=== PATIENT | female | born 1995 | race Caucasian/White ===

== ENCOUNTER 2021-11-29 10:44 | Outpatient (CLI) | payer BC, SELFPAY ==
[2021-12-02 04:39] LABS: Insulin Level Total 8.8 uIU/mL (<=19.6)
== END 2021-11-29 10:45 | disposition home or self-care (01) ==
PROVIDERS: PCP Physician Assistant; Visit Provider Obstetrics & Gynecology
DX: N97.0 Female infertility associated with anovulation (principal)
CPT/HCPCS: 36415; 83525

== ENCOUNTER 2022-04-02 07:01 | Outpatient (CLI) | payer BC, SELFPAY ==
--- NOTE | ~2022-04-02 | XR_ITS ---
EXAMINATION: XR hysterosalpingogram DATE: 04/02/2022 08:36 INDICATION: Female infertility associated with anovulation TECHNIQUE: Real-time fluoroscopy was utilized during contrast infusion into the endometrial canal of the uterus by the primary physician. A single fluoroscopic image was recorded. Fluoroscopy exposure t renu was 0.2 minutes. Total DAP was 1.817 Gycm^2 FINDINGS: The uterine cavity demonstrates normal morphology. The fallopian tubes are normal in caliber and pat ent bilaterally. There is normal spillage of contrast into the peritoneum on both sides. IMPRESSION: 1. Normal hysterosalpingogram. Reviewed, dictated and finalized at location A.
[2022-04-02 08:08] LABS: Beta HCG Quantitative < 2.39 mIU/ML
--- NOTE | 2022-05-01 07:39 | W.PM.PROC2 ---
Procedure Note - Detailed Date of Procedure 04/02/22 Pre-op Diagnosis Femal infertility associated with anovulation Post-op Diagnosis Same Procedure Performed Hysterosalpingogram Surgeon Ronan Fallno MD Anesthesia None Indications Infertility Findings Bilateral fill and spill Description of Procedure After informed consent obtained. She was positioned. Speculum inserted. Cervix cleaned with betadine. Single tooth tenaculum placed on cervix. The cannula was inserted into cervical os and tubing was advanced. The tubing baloon was inflated. The speculum removed. Once the appropriate films obtained, which there was noted to be bilateral fill and spill, the speculum and tenaculum removed. Hemostasis noted. She tolerated procedure well. Estimated Blood Loss 2 Drains No Packing No Pathology None sent Complications No immediate complications Condition Stable Disposition Other (home) [facility] Billing Surgery - Charge Forward: Surgery Billing
== END 2022-04-02 07:02 | disposition home or self-care (01) ==
PROVIDERS: PCP Physician Assistant; Visit Provider Obstetrics & Gynecology
DX: N97.0 Female infertility associated with anovulation (principal)
CPT/HCPCS: 36415; 58340; 74740; 84702; Q9966

== ENCOUNTER 2022-05-21 09:05 | Outpatient (CLI) | payer BC, SELFPAY ==
[2022-05-25 06:32] LABS: Progesterone 0.4 ng/mL (***)
== END 2022-05-21 09:06 | disposition home or self-care (01) ==
LOC: ANHLAB 09:07
PROVIDERS: PCP Physician Assistant; Visit Provider Obstetrics & Gynecology
DX: N97.0 Female infertility associated with anovulation (principal)
CPT/HCPCS: 36415; 84144

== ENCOUNTER 2022-06-18 15:53 | Outpatient (CLI) | payer BC, SELFPAY ==
--- NOTE | ~2022-06-18 | US_ITS ---
Pelvic ultrasound. Clinical History: First trimester , evaluate for viability/dates Technique: Realtime transabdominal and transvaginal scanning of the pelvis was performed. Color flow Doppler and Doppler spectral analysis were performed. Findings: The uterus is anteverted. The endometrial stripe has a thickness of 17 mm. There is a poss ible very early intrauterine gestational sac, with estimated gestational age of 5 weeks 2 days based on average sac diameter of 5 mm. No definite visible pole or yolk sac, commensurate with the ea rly gestational age. The right ovary measures 2.5 x 2.4 x 1.7 cm. No significant right ovarian or adnexal mass is seen. The left ovary measures 3.0 x 3.5 x 2.3 cm. No significant left ovarian or adnexal mass is seen. Vascular flow present in both ovaries on Doppler spectral analysis. There is no evidence of free fluid in the cul de sac. Impression: Probable early intrauterine gestational sac with estimated gestational age of 5 weeks 2 days based on average sac diameter. No visible pole or yolk sac, which would be commensurate with the early gestational age. Consider serial beta hCG trending, and/or follow-up exam as indicated to assess for development of pole/cardiac activity. Reviewed, dictated and finalized at location . 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 No visible pole or yolk sac, which would be commensurate with the early gestational age. Consider serial be ta hCG trending, and/or follow-up exam as indicated to assess for development o f pole/cardiac activity.
[2022-06-22 06:23] LABS: Progesterone 13.5 ng/mL (***)
== END 2022-06-18 15:54 | disposition home or self-care (01) ==
LOC: ANHIMG 15:55
PROVIDERS: PCP Physician Assistant; Visit Provider Obstetrics & Gynecology
DX: O36.80X0 Pregnancy with inconclusive fetal viability, not applicable or unspecified (principal); O09.299 Supervision of pregnancy with other poor reproductive or obstetric history, unspecified trimester; Z3A.00 Weeks of gestation of pregnancy not specified
CPT/HCPCS: 36415; 76801; 76817; 84144; 84702

== ENCOUNTER 2022-06-20 14:01 | Outpatient (CLI) | payer BC, SELFPAY ==
[2022-06-25 16:32] LABS: Progesterone 10.5 ng/mL (***)
== END 2022-06-20 14:02 | disposition home or self-care (01) ==
LOC: ANHLAB 14:04
PROVIDERS: PCP Physician Assistant; Visit Provider Obstetrics & Gynecology
DX: O09.299 Supervision of pregnancy with other poor reproductive or obstetric history, unspecified trimester (principal)
CPT/HCPCS: 36415; 84144; 84702

== ENCOUNTER 2022-07-05 12:23 | Outpatient (CLI) | payer BC, SELFPAY ==
--- NOTE | ~2022-07-05 | US_ITS ---
Pelvic ultrasound. Clinical History: First trimester , size date discrepancy Technique: Realtime transabdominal and transvaginal scanning of the pelvis was performed. Color flow Doppler and Doppler spectral analysis were performed. Findings: The uterus is anteverted, and contains an intrauterine gestation. [place]-rump length of 7 mm corresponds to an estimated gestational age of 6 weeks 4 days. heart rate is 132 bpm. The right ovary measures 3.1 x 2.4 x 3.0 cm. No significant right ovarian or adnexal mass is seen. The left ovary measures 3.3 x 2.3 x 3.7 cm. No significant left ovarian or adnexal mass is seen. Vascular flow present in both ovaries on Doppler spectral analysis and color imaging. There is no evidence of free fluid in the cul de sac. Impression: Live intrauterine gestation with estimated gestational age of 6 weeks 4 days. heart rate is 132 bpm. Reviewed, dictated and finalized at [facility]. S OPERATIONS SPECIALIST Impression: Live intrauterine gestation with estimated gestational age of 6 weeks 4 days. F etal heart rate is 132 bpm.
== END 2022-07-05 12:24 | disposition home or self-care (01) ==
PROVIDERS: PCP Physician Assistant; Visit Provider Obstetrics & Gynecology
DX: O26.891 Other specified pregnancy related conditions, first trimester (principal)
CPT/HCPCS: 76801; 76817

== ENCOUNTER 2022-07-10 15:43 | Outpatient (CLI) | payer BC, SELFPAY ==
--- NOTE | ~2022-07-10 | US_ITS ---
EXAMINATION: US OB <=14 wk fetus w TV INDICATION: O26.859 - Spotting complicating , unspecified tr... TECHNIQUE: Sonography of the pelvis was performed by transabdominal and transvaginal techniques. COMPARISON: None. RESULT: Uterus: Orientation: Anteverted. 10.0 x 4.6 x 5.4 cm cm. Myometrium: homogeneous echogenicity. The e ndometrial cavity is slightly distended by heterogeneous material. The cervix measures approximately 4 cm. Minimal endocervical fluid. Gestation: - Intrauterine gestational sac: Single present. - Mean Sac Diameter: cm, corresponding gestational age week days. - Yolk sac: Present, not directly measured. - Embryo: Not seen. - [place] rump length: 1.35 cm, corresponding gestational age 7 weeks, 4 days. -Gestational heart rate: present 173 bpm. -Subgestational hematoma: Absent . Right ovary: 3.5 x 2.5 x 2.7 cm. Normal sonographic appearance with physiologic follicles. . . Left ovary: 3.7 x 2.3 x 3.2 cm. Normal sonographic appearance with physiologic follicles. . Likely involuting corpus luteal cyst. Pelvis free fluid: Small free fluid is likely physiologic. IMPRESSION: Single, live intrauterine gestation. Estimated Gestational Age: 7 weeks, 4 days by crown rump lengt h. PRANAY by ultrasound 02/22/2023. Heterogeneous material, possibly hemorrhage, within the endometrial c avity. Minimal endocervical fluid. No subdural gestational hematoma. Reviewed, dictated and finalized at location K. Y PAINTER IMPRESSION: Single, live intrauterine gestation. Estimated Gestational Age: 7 weeks, 4 da ys by crown rump length. PRANAY by ultrasound 02/22/2023. Heterogeneous material, p ossibly hemorrhage, within the endometrial cavity. Minimal endocervical fluid. No subdural gestational hematoma.
[2022-07-11] MEDS: RHO(D) IMMUNE GLOBULIN 300 MCG/2 ML SYRINGE IM (15:57)
== END 2022-07-10 15:44 | disposition home or self-care (01) ==
PROVIDERS: PCP Physician Assistant; Visit Provider Obstetrics & Gynecology
DX: O26.851 Spotting complicating pregnancy, first trimester (principal); Z3A.01 Less than 8 weeks gestation of pregnancy
CPT/HCPCS: 36415; 76801; 76817; 85461; 86850; 86900; 86901; 90384; 96372; J2790

== ENCOUNTER 2022-07-14 20:12 | Emergency (ER) | payer BC, SELFPAY ==
[2022-07-14 20:16] VITALS: BP 116/56; PULSE 86; RESP 16; TEMP 36.6; O2SAT 100
--- NOTE | 2022-07-14 20:51 | ED.FEMALEGU ---
HPI - Female Genitourinary General Chief complaint: Vaginal Bleeding Stated complaint: vaginal bleeding Time Seen by Provider: 07/14/22 20:23 History of Present Illness HPI Narrative: Patient is a 26-year-old female who is currently about 8 weeks here for evaluation of vaginal spotting and lower abdominal cramping for the past 4 days. Patient had an ultrasound upon symptom onset 2 days ago that showed a live intrauterine gestation with a small subchorionic hematoma. She received her rhogam shot. Patient was told to expect some bleeding but she presents due to concerns over continued bleeding. She has not saturated more than a menstrual pad per day. No fevers or chills, nausea or vomiting, constipation, dysuria urgency or frequency. Related Data Home Medications Medication Instructions Recorded Confirmed docosahexaenoic acid 200 mg mg PO 10/30/21 06/19/22 capsule ( DHA) folic acid 1 mg tablet 1 mg PO DAILY 07/14/22 Allergies Allergy/AdvReac Type Severity Reaction Status Date / Time No Known Allergies Allergy Verified 07/14/22 20:29 Review of Systems Review of Systems: Gen.: Denies fevers or chills Eyes: Denies eye pain or visual change ENT: Denies congestion Respiratory: Denies shortness of breath or cough CV: Denies chest pain or palpitations GI: Reports lower abdominal pain. Denies nausea, emesis or diarrhea : Reports vaginal bleeding. Denies burning, urgency, frequency or hematuria Musculoskeletal: Denies back pain or muscle pain Neuro: Denies numbness, tingling, weakness or focal weakness Skin: Denies rash Except as documented, all other systems reviewed and negative PMFSH Past Medical History Medical History Headache History of miscarriage Surgical History Surgical History H/O elbow surgery Hx of tonsillectomy Social History Social History Smoking status: Never smoker Alcohol intake: never Substance use: never Exam Narrative: APPEARANCE: Well appearing, no pain in distress, well-nourished. Head: Normocephalic and atraumatic. EYES: PERRLA/EOMI, conjunctivae clear NOSE: No nasal drainage EARS: External ear normal in appearance THROAT: Oropharynx is clear. Mucous membranes are moist. NECK: Supple. No adenopathy, no masses. RESPIRATORY: Airway patent, respirations nonlabored. Clear to auscultation bilaterally, no rales, rhonchi, wheezing. CARDIOVASCULAR: Regular rate and rhythm without murmurs, rubs, or gallops. : POCUS with +FHT ABDOMINAL: Normoactive bowel sounds. Soft, nontender, nondistended. No rebound tenderness or guarding. MUSCULOSKELETAL: Extremities are warm and well-perfused. Moves all extremities well. No edema. NEURO: Normal speech. No focal neurologic deficits. SKIN: Skin is warm and dry. No rashes. PSYCHIATRIC: Normal affect/mood. Course Vital Signs Vital signs: Vital Signs Temperature 97.8 F 07/14/22 20:16 Pulse Rate 86 07/14/22 20:16 Respiratory Rate 16 07/14/22 20:16 Blood Pressure 116/56 L 07/14/22 20:16 Pulse Oximetry 100 07/14/22 20:16 Oxygen Delivery Room Air 07/14/22 20:16 Temperature 97.8 F 07/14/22 20:16 Pulse Rate 86 07/14/22 20:16 Respiratory Rate 16 07/14/22 20:16 Blood Pressure 116/56 L 07/14/22 20:16 Pulse Oximetry 100 07/14/22 20:16 Oxygen Delivery Room Air 07/14/22 20:16 MDM - Female Genitourinary MDM Narrative Medical decision making narrative: 26-year-old G2, female who is currently 8 weeks here for evaluation of vaginal bleeding and lower abdominal cramping over the past 3 days, diagnosed with subchorionic hematoma on ultrasound upon symptom onset with a live intrauterine gestation noted. She is nontoxic-appearing and has normal vital signs. Scant amount of blood noted in vaginal
[2022-07-14 20:57] LABS: Basophils Percent Auto 0.4 % (0.2-1.2); Eosinophils Absolute Auto 0.2 K/mm3 (0-0.3); Eosinophils Percent Auto 2.2 % (0-4.4); Hematocrit 35.7 % (37.0-47.0); Immature Granulocyte Absolute 0.04 K/mm3 (0.00-0.031); Immature Granulocyte Percent A 0.5 % (0-0.5); Lymphocytes Absolute Auto 2.47 K/mm3 (0.9-3.2); Lymphocytes Percent Auto 29.8 % (18.3-44.2); Mean Corpuscular HGB Conc 33.6 g/dl (32-36); Mean Corpuscular Hemoglobin 29.6 pg (26-34); Mean Corpuscular Volume 87.9 fl (80-100); Mean Platelet Volume 8.9 fl (7.4-10.4); Monocytes Absolute Auto 0.5 K/mm3 (0.1-0.6); Monocytes Percent Auto 6.5 % (2.6-8.5); Neutrophils Percent Auto 60.6 % (45.5-73.1); Platelet Count Result 352 k/mm3 (150-375); Red Blood Count 4.06 M/mm3 (4.2-5.4); Red Cell Distribution Width 12.4 % (11.5-14.5); White Blood Count 8.3 K/mm3 (4.5-10.0)
[2022-07-14 22:56] LABS: Appearance Urine Clear (Clear); Bilirubin Urine Negative (Negative); Blood Urine 2+ (Negative); Color Urine Yellow (Yellow); Glucose Urine UA Negative (Negative); Ketones Urine Negative (Negative); Leukocyte Esterase Ur Negative LEU/UL (Negative); Nitrate Urine Negative (Negative); Protein Urine Negative (Negative); Specific Grav Ur 1.015 (1.001-1.035); Urobilinogen Urine 0.2 mg/dL (<2.0)
[2022-07-14 22:59] LABS: Mucus Urine Rare /lpf; RBC Urine 0-2 /hpf (0-2); Squamous Epithelial Cell Urine Rare /hpf (Few); WBC Urine 0-3 /hpf
[2022-07-14 23:00] LABS: Add Urine Microscopic? YES
[2022-07-14 23:12] VITALS: BP 119/73; PULSE 66; RESP 16; O2SAT 100
== END 2022-07-14 23:15 | disposition home or self-care (01) ==
PROVIDERS: Emergency Provider Physician Assistant; PCP Physician Assistant
DX: O20.9 Hemorrhage in early pregnancy, unspecified (principal); Z3A.08 8 weeks gestation of pregnancy
CPT/HCPCS: 36415; 81001; 84702; 85025; 85461; 86850; 86880; 86900; 86901; 90384; 96372; 99284; J2790

== ENCOUNTER 2022-07-15 18:17 | Emergency (ER) | payer BC, SELFPAY ==
[2022-07-15 18:23] VITALS: BP 144/99; PULSE 82; RESP 14; TEMP 36.7; O2SAT 98
--- NOTE | 2022-07-15 19:16 | ED.PREGNANCY ---
HPI - General Chief complaint: Vaginal Bleeding Stated complaint: /bleeding Time Seen by Provider: 07/15/22 19:02 Source: patient, RN notes reviewed and old records reviewed Mode of arrival: ambulatory Limitations: no limitations History of Present Illness HPI Narrative: This is a 26 year old female approximately 8 weeks GA who presents for evaluation of possible miscarriage. She has been having vaginal bleeding since Saturday. She states initially she was passing brown discharge, so an US was ordered. She was told that she has subchorionic hemorrhage. Yesterday she started having bright red vaginal bleeding. She reports it was mild bleeding so she came to ER for evaluation. She was evaluated with bedside US per patient. She was told that she still had IUP with heart tones. This afternoon her bleeding became worse, and she is changing her pads every 1 to 1.5 hours since noon. She is having intermitent lower abdominal cramping but it is mild. She denies dizziness or lightheadedness. She has appointment with DR. Fallon this . Related Data Home Medications Medication Instructions Recorded Confirmed docosahexaenoic acid 200 mg mg PO 10/30/21 06/19/22 capsule ( DHA) folic acid 1 mg tablet 1 mg PO DAILY 07/14/22 Allergies Allergy/AdvReac Type Severity Reaction Status Date / Time No Known Allergies Allergy Verified 07/14/22 20:29 Review of Systems Constitutional: Constitutional: Denies weakness Cardiovascular: Cardiovascular: Denies syncope, Denies rapid heart rate, Denies irregular heart rhythm, Denies leg edema and Denies dyspnea Respiratory: Respiratory: Denies chest congestion, Denies hemoptysis, Denies excessive phlegm production and Denies dyspnea Gastrointestinal: Gastrointestinal: Reports abdominal pain, Denies hematochezia, Denies diarrhea and Denies vomiting Genitourinary: Genitourinary: Reports abnormal vaginal bleeding, Denies hematuria and Denies dysuria Musculoskeletal: Musculoskeletal: Denies joint swelling, Denies loss of height and Denies muscle weakness Neurologic: Denies syncope, Denies focal weakness and Denies weakness PMFSH Past Medical History Medical History Headache History of miscarriage Surgical History Surgical History H/O elbow surgery Hx of tonsillectomy Social History Social History Smoking status: Never smoker Alcohol intake: never Substance use: never Exam Const: General: no acute distress and alert Nutritional Appearance: well nourished Orientation/consciousness: patient oriented x3 HENMT: Head: normal to inspection Eyes: EOM: EOMs intact bilaterally Chest: Chest palpation & inspection: normal inspection of the chest Resp: Effort & Inspection: normal respiratory effort Auscultation: clear to auscultation bilaterally Cardio: Rate: regular rate Rhythm: regular rhythm Heart sounds: no murmurs GI: GI Palp: Yes Soft to palpation, No Tenderness to palpation present (GI), No Guarding due to palpation present (GI) and No Rigid due to palpation Auscultation: normal bowel sounds : Speculum Exam - Vagina: vaginal bleeding (mild bleeding, no clots) Speculum Exam - Cervix: normal appearance of the cervix (scant blood oozing from os, appears closed on speculum) Skin: General skin exam: normal color Rashes: no rashes Neuro: General: patient oriented x3, moves all extremities and CN's II-XI intact bilaterally Extrem: General: normal to inspection Psych: Mental Status: mental status grossly normal Affect: normal affect Attitude: cooperative Course Reevaluation(s) Reevaluation #1: While patient has been in ER she passed what appears to be products of conception. It was sent on to pathology. Her bleeding is minimal. She was given dose of rhogam
[2022-07-15 19:31] LABS: Basophils Percent Auto 0.2 % (0.2-1.2); Eosinophils Absolute Auto 0.1 K/mm3 (0-0.3); Hematocrit 33.6 % (37.0-47.0); Hemoglobin 11.1 g/dL (12.0-15.0); Immature Granulocyte Absolute 0.08 K/mm3 (0.00-0.031); Immature Granulocyte Percent A 0.6 % (0-0.5); Lymphocytes Absolute Auto 1.87 K/mm3 (0.9-3.2); Lymphocytes Percent Auto 13.8 % (18.3-44.2); Mean Corpuscular Volume 87.7 fl (80-100); Mean Platelet Volume 8.9 fl (7.4-10.4); Monocytes Absolute Auto 0.7 K/mm3 (0.1-0.6); Monocytes Percent Auto 4.9 % (2.6-8.5); Neutrophils Absolute Auto 10.8 K/mm3 (1.3-6.7); Neutrophils Percent Auto 79.5 % (45.5-73.1); Platelet Count Result 300 k/mm3 (150-375); Red Blood Count 3.83 M/mm3 (4.2-5.4); Red Cell Distribution Width 12.6 % (11.5-14.5); White Blood Count 13.6 K/mm3 (4.5-10.0)
--- NOTE | 2022-07-15 21:14 | PC.NURSE ---
Spoke with Panda from hammer heater's office at 210 who says we are free to release POC to the lab.
[2022-07-15] MEDS: RHO(D) IMMUNE GLOBULIN 300 MCG/2 ML SYRINGE IM (21:19)
[2022-07-15 21:22] VITALS: BP 111/53; PULSE 85; RESP 16; O2SAT 99
== END 2022-07-15 21:46 | disposition home or self-care (01) ==
PROVIDERS: Emergency Provider General Practice; PCP Physician Assistant
DX: O03.9 Complete or unspecified spontaneous abortion without complication (principal)
CPT/HCPCS: 36415; 84702; 85025; 88305; 96372; 99284

== ENCOUNTER 2023-04-02 09:21 | Outpatient (CLI) | payer BC, SELFPAY ==
[2023-04-02 09:55] LABS: Basophils Percent Auto 0.3 % (0.2-1.2); Eosinophils Absolute Auto 0.2 K/mm3 (0-0.3); Eosinophils Percent Auto 2.6 % (0-4.4); Hematocrit 35.7 % (37.0-47.0); Hemoglobin 11.9 g/dL (12.0-15.0); Immature Granulocyte Absolute 0.05 K/mm3 (0.00-0.031); Immature Granulocyte Percent A 0.6 % (0-0.5); Lymphocytes Absolute Auto 1.75 K/mm3 (0.9-3.2); Lymphocytes Percent Auto 19.9 % (18.3-44.2); Mean Corpuscular HGB Conc 33.3 g/dl (32-36); Mean Corpuscular Hemoglobin 29.8 pg (26-34); Mean Corpuscular Volume 89.5 fl (80-100); Mean Platelet Volume 9.4 fl (7.4-10.4); Monocytes Absolute Auto 0.7 K/mm3 (0.1-0.6); Monocytes Percent Auto 7.4 % (2.6-8.5); Neutrophils Absolute Auto 6.1 K/mm3 (1.3-6.7); Neutrophils Percent Auto 69.2 % (45.5-73.1); Platelet Count Result 303 k/mm3 (150-375); Red Blood Count 3.99 M/mm3 (4.2-5.4); Red Cell Distribution Width 13.2 % (11.5-14.5); White Blood Count 8.8 K/mm3 (4.5-10.0)
[2023-04-02 10:19] LABS: Appearance Urine Turbid (Clear); Bacteria Urine Rare /hpf; Bilirubin Urine Negative (Negative); Blood Urine 1+ (Negative); Color Urine Yellow (Yellow); Glucose Urine UA Negative (Negative); Ketones Urine Negative (Negative); Leukocyte Esterase Ur Trace LEU/UL (NEGATIVE); Need Manual Microscopic Reviewed; Nitrate Urine Negative (Negative); Non Pathogenic Casts 0-2; Protein Urine Negative (Negative); RBC Urine 51-100 /hpf (0-2); Squamous Epithelial Cell Urine Moderate /hpf (Few); Urobilinogen Urine 0.2 mg/dL (<2.0)
[2023-04-02 10:21] LABS: Add Urine Microscopic? YES
[2023-04-02 10:33] LABS: Thyroid Stimulating Hormone 0.884 uIU/mL (0.465-4.680)
[2023-04-02 10:43] LABS: HIV 1/2 Ab P24 Ag Result Negative (Negative)
[2023-04-02 10:55] LABS: Hepatitis B Surface Antigen Negative (Negative)
[2023-04-02 10:56] LABS: Rubella IgG Antibody > 110.0 IU/ML
[2023-04-02 11:11] LABS: Hepatitis C Virus Antibody Negative (Negative)
[2023-04-02 15:40] LABS: Rapid Plasma Reagin Non-Reactive (NonReactive)
[2023-04-06 22:49] LABS: Hematocrit 37.2 % (35.0-45.0); Hemoglobin 12.2 g/dL (11.7-15.5); MCH 29.8 pg (27.0-33.0); MCV 90.7 fL (80.0-100.0); RDW 13.1 % (11.0-15.0)
== END 2023-04-02 09:22 | disposition home or self-care (01) ==
LOC: ANHLAB 09:23
PROVIDERS: PCP Physician Assistant; Visit Provider Obstetrics & Gynecology
DX: Z34.91 Encounter for supervision of normal pregnancy, unspecified, first trimester (principal)
CPT/HCPCS: 36415; 81001; 83021; 84443; 85025; 86592; 86703; 86762; 86787; 86803; 86850; 86900; 86901; 87086; 87088; 87340; G0432

== ENCOUNTER 2023-08-11 08:07 | Outpatient (RCR) | payer OTHER, SELFPAY ==
[2023-08-09 10:07] LABS: Basophils Percent Auto 0.3 % (0.2-1.2); Eosinophils Absolute Auto 0.1 K/mm3 (0-0.3); Eosinophils Percent Auto 1.2 % (0-4.4); Hematocrit 33.6 % (37.0-47.0); Immature Granulocyte Absolute 0.14 K/mm3 (0.00-0.031); Immature Granulocyte Percent A 1.5 % (0-0.5); Lymphocytes Absolute Auto 1.83 K/mm3 (0.9-3.2); Lymphocytes Percent Auto 19.6 % (18.3-44.2); Mean Corpuscular HGB Conc 32.7 g/dl (32-36); Mean Corpuscular Hemoglobin 30.6 pg (26-34); Mean Corpuscular Volume 93.3 fl (80-100); Mean Platelet Volume 9.8 fl (7.4-10.4); Monocytes Absolute Auto 0.5 K/mm3 (0.1-0.6); Monocytes Percent Auto 4.8 % (2.6-8.5); Neutrophils Absolute Auto 6.8 K/mm3 (1.3-6.7); Neutrophils Percent Auto 72.6 % (45.5-73.1); Platelet Count Result 249 k/mm3 (150-375); White Blood Count 9.4 K/mm3 (4.5-10.0)
[2023-08-11] MEDS: RHO(D) IMMUNE GLOBULIN 300 MCG/2 ML SYRINGE IM (11:44)
== END 2023-08-11 08:15 | disposition home or self-care (01) ==
LOC: ANHLAB 08:07
PROVIDERS: PCP Physician Assistant; Visit Provider Registered Nurse
DX: O09.92 Supervision of high risk pregnancy, unspecified, second trimester (principal); Z3A.00 Weeks of gestation of pregnancy not specified
CPT/HCPCS: 36415; 85025; 85461; 86850; 86900; 86901; 90384; 96372; J2790

== ENCOUNTER 2023-08-16 07:54 | Outpatient (CLI) | payer OTHER, SELFPAY ==
[2023-08-16 09:20] LABS: Glucose 1 Hour PP 50gm Dose 127 mg/dL
== END 2023-08-16 07:55 | disposition home or self-care (01) ==
LOC: ANHLAB 07:55
PROVIDERS: PCP Physician Assistant; Visit Provider Registered Nurse
DX: O09.92 Supervision of high risk pregnancy, unspecified, second trimester (principal); Z3A.00 Weeks of gestation of pregnancy not specified
CPT/HCPCS: 36415; 82947

== ENCOUNTER 2023-09-13 08:39 | Outpatient (CLI) | payer OTHER, SELFPAY ==
[2023-09-13 09:21] LABS: Hemoglobin 10.8 g/dL (12.0-15.0); Mean Corpuscular HGB Conc 32.7 g/dl (32-36); Mean Corpuscular Hemoglobin 31.1 pg (26-34); Mean Corpuscular Volume 95.1 fl (80-100); Mean Platelet Volume 10.3 fl (7.4-10.4); Platelet Count Result 234 k/mm3 (150-375); Red Blood Count 3.47 M/mm3 (4.2-5.4); Red Cell Distribution Width 14.2 % (11.5-14.5); White Blood Count 8.8 K/mm3 (4.5-10.0)
[2023-09-13 10:14] LABS: HIV 1/2 Ab P24 Ag Result Negative (Negative)
[2023-09-14 23:11] LABS: Rapid Plasma Reagin Non-Reactive (NonReactive)
== END 2023-09-13 08:40 | disposition home or self-care (01) ==
PROVIDERS: PCP Physician Assistant; Visit Provider Nurse Practitioner Family
DX: O09.93 Supervision of high risk pregnancy, unspecified, third trimester (principal)
CPT/HCPCS: 36415; 85027; 86592; 86703; G0432

== ENCOUNTER 2023-09-20 08:08 | Outpatient (CLI) | payer OTHER, SELFPAY ==
[2023-09-20 09:42] LABS: Glucose 1 Hour PP 50gm Dose 129 mg/dL
== END 2023-09-20 08:09 | disposition home or self-care (01) ==
LOC: ANHLAB 08:10
PROVIDERS: PCP Physician Assistant; Visit Provider Obstetrics & Gynecology
DX: O09.93 Supervision of high risk pregnancy, unspecified, third trimester (principal); Z3A.00 Weeks of gestation of pregnancy not specified
CPT/HCPCS: 36415; 82947

== ENCOUNTER 2023-10-22 09:34 | Outpatient (RCR) | payer OTHER, SELFPAY ==
[2023-09-17 10:06] VITALS: BP 116/68; PULSE 104
[2023-09-23 15:24] VITALS: BP 110/60; PULSE 97
[2023-10-01 17:30] VITALS: BP 124/82; PULSE 96
[2023-10-15 12:51] VITALS: BP 109/74; PULSE 101
--- NOTE | ~2023-10-22 | US_ITS ---
EXAMINATION: US OB BPP wo non-stress DATE: 09/23/2023 15:36 INDICATION: Large for gestational age during third trimester TECHNIQUE: Real-time pelvic ultrasound was performed. The interpreting radiologist was not present fo r the study. COMPARISON: None. FINDINGS: There is a single living fetus in vertex presentation. The placenta is anterior. heart rate is 131 beats per minute (bpm). Biophysical profile performed by the technologist: breathing (30 sec sustained breathing in 30 minutes): 2 out of 2 movement (3 gross body movements in 30 minutes): 2 out of 2 tone (one episode of phipllt-wkrnhktlz-svfaxtm limb movement): 2 out of 2 Amniotic fluid pocket (2 cm): 2 out of 2 Total score: 8 out of 8 IMPRESSION: 1. Single living fetus in vertex presentation. 2. Biophysical profile 8 out of 8. Reviewed, dictated and finalized at location F.
--- NOTE | ~2023-10-22 | US_ITS ---
US OB limited 10/15/2023 12:39 Indication: Large for gestational age. Procedure: High-resolution Limited obstetrical ultrasound Comparison: 10/01/2023 Findings: There is a single living intrauterine in vertex presentation. Placenta is anterio r without previa. heart rate 129 BPM. Amniotic fluid index is normal measuring 12.6 cm. Impression: 1: Single living intrauterine in vertex presentation. 2: Normal BIANKA measures 12.6 cm. Reviewed, dictated and finalized at location B. Impression: 1: Single living intrauterine in vertex presentation. 2: Normal BIANKA measures 12.6 cm.
--- NOTE | ~2023-10-22 | US_ITS ---
EXAMINATION: US OB limited w BPP DATE: 10/01/2023 17:25 INDICATION: variable decelerations/BPP and BIANKA . TECHNIQUE: Real-time ultrasound of the pelvis was performed. COMPARISON: 09/23/2023. FINDINGS: There is a single living fetus in vertex presentation, longitudinal lie. The placenta is anterior, w ell distant from the cervix. heart rate is 141 bpm. The amniotic fluid index is 13.3 cm, which is normal (5th to 95th percentile is 7.9 to 24.9 cm). Biophysical profile performed by the technologist: breathing (30 sec sustained breathing in 30 minutes): 2 out of 2. movement (3 gross body movements in 30 minutes: 2 out of 2. tone (one episode of ectusam-dtcguuxgh-whojnta limb movement): 2 out of 2. Amniotic fluid pocket (2 cm): 2 out of 2. Total score: 8 out of 8. IMPRESSION: Single living fetus in vertex presentation. Biophysical profile 8 out of 8. Normal BIANKA. Reviewed, dictated and finalized at location K.
--- NOTE | ~2023-10-22 | US_ITS ---
EXAMINATION: US OB limited w BPP 2 DATE: 09/17/2023 09:34 INDICATION: Decreased heart rate during third trimester . Assess amniotic fluid index. TECHNIQUE: Real-time pelvic ultrasound was performed. The interpreting radiologist was not present fo r the study. COMPARISON: 07/10/2022 FINDINGS: There is a single living fetus in vertex presentation. The placenta is anterior fundal. heart rate is 131 beats per minute (bpm). Amniotic fluid index of 8.3 cm which is at the lower limits of no rmal (5th%-95%: 8.3-24.5 cm at 33 weeks estimated gestational age) Biophysical profile performed by the technologist: breathing (30 sec sustained breathing in 30 minutes): 2 out of 2 movement (3 gross body movements in 30 minutes): 2 out of 2 tone (one episode of arwhnfx-qnyojflgs-dqsqsnk limb movement): 2 out of 2 Amniotic fluid pocket (2 cm): 2 out of 2 Total score: 8 out of 8 IMPRESSION: 1. Single living fetus in vertex presentation with heart rate of 131 bpm. 2. Biophysical profile 8 out of 8. 3. Amniotic fluid index of 8.3 cm which is at the lower limits of normal. Reviewed, dictated and finalized at location A.
--- NOTE | ~2023-10-22 | US_ITS ---
EXAMINATION: US OB limited DATE: 10/22/2023 10:46 INDICATION: Large for gestational age. Third trimester. TECHNIQUE: Real-time ultrasound of the pelvis was performed. COMPARISON: Ultrasound 10/15/2023 FINDINGS: There is a single fetus in vertex presentation. The placenta is anterior. heart rate is 126 be ats per minute (bpm). The amniotic fluid index is 20.4 cm cm, which is normal. IMPRESSION: 1. Single living fetus in vertex presentation. 2. Normal amniotic fluid index. Reviewed, dictated and finalized at location E.
[2023-10-22 10:53] VITALS: BP 119/70; PULSE 102
== END 2023-12-16 08:21 | disposition home or self-care (01) ==
LOC: ANHOBOP 09:34
PROVIDERS: PCP Physician Assistant; Visit Provider Obstetrics & Gynecology
DX: O09.813 Supervision of pregnancy resulting from assisted reproductive technology, third trimester (principal); O36.8330 Maternal care for abnormalities of the fetal heart rate or rhythm, third trimester, not applicable or unspecified; Z3A.33 33 weeks gestation of pregnancy; O36.63X0 Maternal care for excessive fetal growth, third trimester, not applicable or unspecified; Z3A.34 34 weeks gestation of pregnancy; Z3A.35 35 weeks gestation of pregnancy; Z3A.37 37 weeks gestation of pregnancy; Z3A.38 38 weeks gestation of pregnancy
CPT/HCPCS: 59025; 76815; 76819

== ENCOUNTER 2023-10-28 16:56 | Inpatient (IN) | payer OTHER, SELFPAY ==
[2023-10-28] VITALS (15 sets, daily range): BP systolic 106–127; BP diastolic 59–81; PULSE 89–114; RESP 18; TEMP 36.4–36.6; BMI 33.2
[2023-10-28 17:30] LABS: Basophils Percent Auto 0.2 % (0.2-1.2); Eosinophils Absolute Auto 0.1 K/mm3 (0-0.3); Eosinophils Percent Auto 0.7 % (0-4.4); Hematocrit 36.2 % (37.0-47.0); Hemoglobin 12.2 g/dL (12.0-15.0); Immature Granulocyte Absolute 0.09 K/mm3 (0.00-0.031); Immature Granulocyte Percent A 0.8 % (0-0.5); Lymphocytes Absolute Auto 1.25 K/mm3 (0.9-3.2); Lymphocytes Percent Auto 11.3 % (18.3-44.2); Mean Corpuscular HGB Conc 33.7 g/dl (32-36); Mean Corpuscular Hemoglobin 31.4 pg (26-34); Mean Corpuscular Volume 93.1 fl (80-100); Mean Platelet Volume 10.7 fl (7.4-10.4); Monocytes Absolute Auto 0.8 K/mm3 (0.1-0.6); Monocytes Percent Auto 6.8 % (2.6-8.5); Neutrophils Absolute Auto 8.8 K/mm3 (1.3-6.7); Neutrophils Percent Auto 80.2 % (45.5-73.1); Platelet Count Result 214 k/mm3 (150-375); Red Blood Count 3.89 M/mm3 (4.2-5.4)
--- NOTE | 2023-10-28 17:33 | LDADM ---
This patient, Tia Ricci, was admitted to Labor/Delivery/Recovery 105 on 10/28/23 at 16:56. Plans for labor, pain management and were discussed with patient. Patient/family oriented to hospital policies and general routines including ID bracelet, bed and alarms, visiting hours, pain management, procedures, bathroom and other care routines, personal items, smoking policy, room service/diet and guest tray routines, infant security routines, and visiting hours. Patient/Family are encouraged to report perceived risks to care and to ask questions if they do not understand what they are told or what they should do. See OBIX for further documentation.
[2023-10-28] MEDS: miSOPROStol 25 MCG TABLET 50 MCG PO ×2 (17:53→22:05)
--- NOTE | 2023-10-28 18:54 | WPDANESEPP ---
Anes - Eval Pre Procedure Procedure: Labor epidural Date/Time: 10/28/23 18:54 Surgeon: Leeanne Preop Diagnosis: Abdominal pain with contractions Pre Op Diagnosis: Induction of Labor Patient Data Age: 28 Gender: F Height: 1.6 m Weight: 85 kg Last Vital Signs Temp 97.8 F 10/28/23 17:45 Pulse 103 H 10/28/23 18:45 Resp 18 10/28/23 17:45 BP 114/74 10/28/23 18:45 O2 Del Method Room Air 10/28/23 17:32 Allergies Allergy/AdvReac Type Severity Reaction Status Date / Time No Known Allergies Allergy Verified 10/22/23 09:02 Home Medications Medication Instructions Recorded Confirmed Type aspirin 81 mg tablet,delayed 81 mg PO DAILY 04/18/23 10/28/23 History release (Adult Low Dose Aspirin) amitriptyline 10 mg tablet 10 mg PO QHS #90 tabs 08/12/23 10/28/23 Rx ferrous sulfate [Iron (ferrous PO 09/23/23 History sulfate)] prenat.vits,rickie,stg-gvek-aagom tablet 10/03/23 History Laboratory Tests 10/28/23 17:05 WBC 11.0 H K/mm3 (4.5-10.0) RBC 3.89 L M/mm3 (4.2-5.4) Hgb 12.2 g/dL (12.0-15.0) Hct 36.2 L % (37.0-47.0) MCV 93.1 fl (80-100) MCH 31.4 pg (26-34) MCHC 33.7 g/dl (32-36) RDW 14.0 % (11.5-14.5) Plt Count 214 k/mm3 (150-375) MPV 10.7 H fl (7.4-10.4) Immature Gran % (Auto) 0.8 H % (0-0.5) Neut % (Auto) 80.2 H % (45.5-73.1) Lymph % (Auto) 11.3 L % (18.3-44.2) [place] % (Auto) 6.8 % (2.6-8.5) Eos % (Auto) 0.7 % (0-4.4) Baso % (Auto) 0.2 % (0.2-1.2) Lymph # (Auto) 1.25 K/mm3 (0.9-3.2) [place] # (Auto) 0.8 H K/mm3 (0.1-0.6) Eos # (Auto) 0.1 K/mm3 (0-0.3) Baso # (Auto) 0.0 K/mm3 (0.0-0.1) Abs Immat Gran (auto) 0.09 H K/mm3 (0.00-0.031) Absolute Neuts (auto) 8.8 H K/mm3 (1.3-6.7) Absolute Nucleated RBC 0.000 K/mm3 (0.0-0.012) Nucleated RBC % 0.0 % (0.0-0.2) RPR Pending : gestational age HCG: positive Patient hx anesthesia problems: none Family hx anesthesia problems: none Results Review: All pre-operative results and documents have been reviewed as part of the pre-operative evaluation. [facility] Past Medical History Medical History Anteversion, uterus Headache History of asthma History of miscarriage In vitro fertilization Overweight (BMI 25.0-29.9) PCOS (polycystic ovarian syndrome) Supervision of high risk in third trimester Surgical History Surgical History H/O elbow surgery Right History of hysterosalpingogram (~04/02/22) Normal Hx of tonsillectomy [place] teeth extracted (~2014) Family History Family History Sibling Spina bifida of lumbar spine Grandparent Heart disease Grandparent Colon cancer Heart disease Grandparent Heart disease Grandparent Heart disease Mother Low thyroid stimulating hormone (TSH) level Social History Social History Smoking status: Never smoker Alcohol intake: never Substance use: never Do You Feel Safe in your Home?: Yes Lack of Transportation: No Lack of Food: Never True Current Housing: I Have Housing Concerned About Future Housing: No Difficulty Paying Gas/Electric Bills: No Difficulty Paying for Meds: No Currently Unemployed: No Education: Associate Degree Difficulty w/ Childcare or Family Care: No Living arrangements: with family Occupation/Education: occupation 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
[2023-10-29] VITALS (283 sets, daily range): BP systolic 90–153; BP diastolic 45–116; PULSE 75–240; RESP 16–18; TEMP 36.6–38.6; O2SAT 90–100
[2023-10-29] MEDS: miSOPROStol 25 MCG TABLET 50 MCG PO (02:06)
[2023-10-29] MEDS: fentaNYL CITRATE INJ (*CRX) 100 MCG/2 ML VIAL 50 MCG IV PUSH ×2 (04:48→07:28)
[2023-10-29] MEDS: OXYTOCIN 30 UNITS/NS 500 ML 30 UNITS/500 ML BAG 6 UNITS IV CONT (06:10)
[2023-10-29] MEDS: LACTATED RINGERS 1,000 ML 125 ML IV CONT ×5 (06:10→23:49)
[2023-10-29] MEDS: ACETAMINOPHEN 500 MG TABLET 1000 MG PO ×3 (10:03→22:27)
[2023-10-29 12:52] LABS: Rapid Plasma Reagin Non-Reactive (NonReactive)
--- NOTE | 2023-10-29 16:00 | PM.IMHP ---
H&P: HPI History of Present Illness Date/Time: 10/29/23 16:00 Chief Complaint: Medical induction of labor Narrative: Patient is a 28-year-old at 39 weeks 4 days by IVF conception. IVF done due to patient with with known chromosomal translocation. course significant for LGA. She has had reassuring surveillance testing. Labs reviewed. GBS negative. She has been informed of options of awaiting spontaneous labor versus options of induction of labor and risks benefits of those options discussed. She has opted for induction of labor. [facility] Past Medical History Medical History Anteversion, uterus Headache History of asthma History of miscarriage In vitro fertilization Overweight (BMI 25.0-29.9) PCOS (polycystic ovarian syndrome) Supervision of high risk in third trimester Surgical History Surgical History H/O elbow surgery Right History of hysterosalpingogram (~04/02/22) Normal Hx of tonsillectomy [place] teeth extracted (~2014) Family History Family History Sibling Spina bifida of lumbar spine Grandparent Heart disease Grandparent Colon cancer Heart disease Grandparent Heart disease Grandparent Heart disease Mother Low thyroid stimulating hormone (TSH) level Social History Social History Smoking status: Never smoker Alcohol intake: never Substance use: never Do You Feel Safe in your Home?: Yes Lack of Transportation: No Lack of Food: Never True Current Housing: I Have Housing Concerned About Future Housing: No Difficulty Paying Gas/Electric Bills: No Difficulty Paying for Meds: No Currently Unemployed: No Education: Associate Degree Difficulty w/ Childcare or Family Care: No Living arrangements: with family Occupation/Education: occupation 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 Gender identity (if verbalized by the patient): Female Sexual Orientation (if Verbalized by the Patient): Straight or Heterosexual Spiritual care concerns: No Meds Home Medications and Allergies Home Medications Medication Instructions Recorded Confirmed Type aspirin 81 mg tablet,delayed 81 mg PO DAILY 04/18/23 10/28/23 History release (Adult Low Dose Aspirin) amitriptyline 10 mg tablet 10 mg PO QHS #90 tabs 08/12/23 10/28/23 Rx ferrous sulfate [Iron (ferrous PO 09/23/23 History sulfate)] prenat.vits,rickie,oos-yhgb-qhyqc tablet 10/03/23 History Allergies Allergy/AdvReac Type Severity Reaction Status Date / Time No Known Allergies Allergy Verified 10/22/23 09:02 Vital Signs Vital Signs - 24 hr 10/28/23 17:32 10/28/23 17:45 10/28/23 18:00 Temperature 97.8 F Pulse Rate 102 H 104 H Respiratory Rate 18 Blood Pressure 120/81 124/79 Pulse Oximetry Oxygen Delivery Room Air 10/28/23 18:15 10/28/23 18:32 10/28/23 18:45 Temperature Pulse Rate 97 101 H 103 H Respiratory Rate Blood Pressure 111/65 122/68 114/74 Pulse Oximetry Oxygen Delivery 10/28/23 19:00 10/28/23 19:31 10/28/23 20:00 Temperature Pulse Rate 104 H 95 89 Respiratory Rate Blood Pressure 112/75 118/79 127/75 Pulse Oximetry Oxygen Delivery 10/28/23 20:30 10/28/23 21:00 10/28/23 21:30 Temperature 97.6 F Pulse Rate 95 105 H 114 H Respiratory Rate Blood Pressure 123/71 119/71 109/64 Pulse Oximetry Oxygen Delivery 10/28/23 22:00 10/28/23 22:30 10/28/23 23:00 Temperature 97.8 F Pulse Rate 98 89 96 Respiratory Rate Blood Pressure 107/73 124/74 109/59 L Pulse Oximetry Oxygen Delivery 10/28/23 23:30 10/29/23 00:00 10/29/23 00:30 Temperature Pulse Rate 94 87 92 Respiratory Rate Blood Pressure 106/64 116/59 L 130/74 Pulse O
--- NOTE | 2023-10-29 16:03 | PM.OBPNVD ---
OB - PN: Subj Subjective Date/time seen: 10/29/23 0800 Interval history: FHT 135 category 2, a ROM clear, cervix 1.5/70/-2, continue Pitocin. OB - PN: Obj Data Labs 10/28/23 17:05 Labs: Laboratory Results - last 24 hr 10/28/23 17:05 WBC 11.0 H RBC 3.89 L Hgb 12.2 Hct 36.2 L MCV 93.1 MCH 31.4 MCHC 33.7 RDW 14.0 Plt Count 214 MPV 10.7 H Immature Gran % (Auto) 0.8 H Neut % (Auto) 80.2 H Lymph % (Auto) 11.3 L [place] % (Auto) 6.8 Eos % (Auto) 0.7 Baso % (Auto) 0.2 Lymph # (Auto) 1.25 [place] # (Auto) 0.8 H Eos # (Auto) 0.1 Baso # (Auto) 0.0 Abs Immat Gran (auto) 0.09 H Absolute Neuts (auto) 8.8 H Absolute Nucleated RBC 0.000 Nucleated RBC % 0.0 RPR Non-reactive Blood Type A Negative Antibody Screen Positive Antibody Identification Inconclusive Antigen Identification Cancelled JASMEET, IgG Interpret Negative JASMEET, Poly Interpret TNP JASMEET, Complement Interp Negative OB - PN A/P Time Spent With Patient Time: Total time spent is greater than 50% in coordination of care (as documented) at patient's floor/unit and/or counseling patient:
[2023-10-29] MEDS: PSEUDOEPHEDRINE HCL 30 MG TABLET 60 MG PO (16:32)
[2023-10-29] MEDS: AMPICILLIN 2 GM/NS 100 ML 2 GM/100 ML BAG IVPB (20:13)
[2023-10-29] MEDS: ONDANSETRON INJ 4 MG/2 ML VIAL IV PUSH (23:46)
[2023-10-29] MEDS: FAMOTIDINE 20 MG/2 ML VIAL IV PUSH (23:46)
[2023-10-30] VITALS (19 sets, daily range): BP systolic 93–115; BP diastolic 36–65; PULSE 89–139; RESP 16–18; TEMP 36.5–37.3; O2SAT 95–100
--- NOTE | 2023-10-30 00:01 | PM.OBPNLAB ---
Pain Control Date/time seen: 10/30/23 00:01 Comments: fht 150, cat 2, fever, pt was pushing with good effort, no change in station and cervix started swelling. She was recommended for delivery by section for failure to progress. She has been informed of risk of continuing to attempt vaginal delivery and risk of section and benefits of section and she agrees with primary section.
[2023-10-30] MEDS: ceFAZolin 2 GM/D5W 50 ML 2 GM/50 ML BAG IVPB (00:12)
[2023-10-30] MEDS: GENTAMICIN SULFATE INJ 425 MG in DEXTROSE 5% 100 ML 100 MG IVPB (00:13)
--- NOTE | 2023-10-30 01:08 | W.PM.OBCSD ---
OB - Delivery Note Procedure Delivery date: 10/30/23 Pre-op diagnosis: Arrest of Decent and Chorioamniontis Post-op Diagnosis: Same Induction method: Per Misoprostol Protocol Delivery augmentation: Rupture of Membranes and Pitocin Delivery monitor: External FHT and Internal Uterine Prior to decision for section, [facility] labor guidelines were considered and discussed with the patient and staff. Decision made to proceed with the section.: Yes Procedure Performed: Primary Surgeon: Ronan Fallon MD Anesthesia type: Epidural Description of Procedure/Findings: After informed consent, risks and benefits of the procedure was discussed with the patient. The patient was taken to the operating room where she was placed in the dorsal lithotomy position with leftward tilt. After the prior placed epidural anesthesia was found to be adequate, she was then prepped and draped in the usual sterile fashion. A Pfannenstiel skin incision was made with a scalpel and carried through to the underlying layer of fascia. The fascia was then nicked in the midline, extending bilaterally. The fascia was dissected off the rectus muscles bluntly and sharply, superiorly and inferiorly. The rectus muscles were in the midline, and peritoneum was identified and entered bluntly. The pelvic organs were visualized. The bladder blade was then inserted. The vesicouterine peritoneum was identified and entered sharply with Metzenbaum scissors and extended bilaterally and then the bladder flap was created digitally. The low transverse uterine incision was then made with the scalpel and extended with bilateral index fingers in a crescent-shaped fashion. Meconium fluid noted. The head was delivered and the rest of the was delivered. . The infant was then handed off to the awaiting pediatric staff. The placenta was then delivered manually. The uterine cavity was sponge curetted. The uterus was then exteriorized. The uterine incision was then closed with 0 vicryl in a running locked fashion. Hemostasis noted. A second layer of 0 vicryl was used in an imbricating fashion for hemostasis. The uterus was then returned to the abdomen. Posterior cul de sac clear of debris. Bilateral gutters were cleared off all clots and debris. The uterine incision was noted to be hemostatic. Interceed placed on uterine incision and vertically on front of uterus. The muscle bellies were inspected and noted to be hemostatic. The peritoneum was approximated with 3.0 vicryl. The subfascial layer was noted to be hemostatic, and the fascia was closed with 0 Vicryl in a running fashion. The subcutaneous layer was then closed with 3-0 Vicryl in a subcutaneous fashion. The skin was closed with Ensord antonia. Skin dermabond applied at incision. All instruments, needle, and lap counts were correct x3. The patient was taken to the recovery room in stable condition. Specimen: Yes (placenta and cord) Estimated Blood Loss: 1,270 Drains: No Packing: No Pathology: Yes (placenta and cord) Complications: No immediate complications Condition: Stable Disposition: Floor [place] Baby Date of : 10/30/23 Time of : 00:30 Weeks of gestation at delivery: 39 gender: Male Weight (pounds): 9 Weight (ounces): 13 presentation: transverse position: Left Occiput Transverse Placenta delivery description: Expressed score one minute: 8 score five minutes: 9
[2023-10-30] MEDS: AMPICILLIN 1 GM/NS 50 ML 1 GM/50 ML BAG IVPB ×5 (01:15→17:06)
[2023-10-30] MEDS: LACTATED RINGERS 1,000 ML 125 ML IV CONT ×2 (01:48→05:38)
[2023-10-30] MEDS: OXYTOCIN 30 UNITS/NS 500 ML 30 UNITS/500 ML BAG 125 UNITS IV CONT (01:49)
[2023-10-30] MEDS: CLINDAMYCIN 900 MG/D5W 50 ML 900 MG/50 ML PIGGYBACK 50 MG IVPB ×3 (02:20→18:36)
--- NOTE | 2023-10-30 03:26 | PC.NURSE ---
Patient transferred to post room #287 via ( Stretcher ). Support person present. Oriented to unit, room, information board, rooming in, admission packet and security measures. Patient verbalizes understanding.
[2023-10-30] MEDS: KETOROLAC 15 MG/ML VIAL (*BKC) IV PUSH ×3 (04:07→17:06)
[2023-10-30] MEDS: ACETAMINOPHEN 325 MG TABLET 650 MG PO ×4 (04:07→23:05)
[2023-10-30] MEDS: LORATADINE 10 MG TABLET PO ×2 (04:08)
[2023-10-30] MEDS: diphenhydrAMINE HCl INJ 50 MG/ML VIAL 25 MG IV PUSH (06:58)
[2023-10-30] MEDS: SIMETHICONE 80 MG TAB.CHEW PO ×3 (06:59→17:06)
[2023-10-30] MEDS: DOCUSATE SODIUM 100 MG CAPSULE PO ×2 (06:59→17:06)
[2023-10-30] MEDS: MULTIVIT/MIN/PREN/FOL AC/IRON TABLET 1 TAB PO (07:00)
--- NOTE | 2023-10-30 17:27 | PC.NURSE ---
[id number] Breast pump provided due to separation. Instructions given on cleaning, care, usage, that there should be no pain, pumping schedule for milk production, collection, and storage of human milk. Patient was assessed for correct placement, flange size, to pump for comfort and nipple stretching/stimulation for adequate milk production every 3 hours (8 times in 24 hours) 1-2 times at night. Parents are encouraged to record the pumping schedule on the feeding sheet.?Mother voiced understanding of the education shared along with mom/baby guide and the pump measurement, flange fit handout for additional resource information. Parents instructed to call after pumping for 15 minutes and they voiced understanding. [id number] Colostrum was collected up in a syringe to feed to if transport team states they have an order to do so.
[2023-10-30] MEDS: IBUPROFEN 600 MG TABLET PO (23:05)
[2023-10-31] MEDS: ACETAMINOPHEN 325 MG TABLET 650 MG PO ×3 (04:37→16:43)
[2023-10-31] MEDS: IBUPROFEN 600 MG TABLET PO ×3 (04:38→16:43)
[2023-10-31 04:45] LABS: Basophils Absolute Auto 0.1 K/mm3 (0.0-0.1); Basophils Percent Auto 0.3 % (0.2-1.2); Eosinophils Absolute Auto 0.1 K/mm3 (0-0.3); Eosinophils Percent Auto 0.9 % (0-4.4); Immature Granulocyte Absolute 0.11 K/mm3 (0.00-0.031); Immature Granulocyte Percent A 0.8 % (0-0.5); Lymphocytes Absolute Auto 2.05 K/mm3 (0.9-3.2); Lymphocytes Percent Auto 14.1 % (18.3-44.2); Mean Corpuscular HGB Conc 32.1 g/dl (32-36); Mean Corpuscular Hemoglobin 30.9 pg (26-34); Mean Corpuscular Volume 96.2 fl (80-100); Mean Platelet Volume 10.8 fl (7.4-10.4); Monocytes Percent Auto 7.1 % (2.6-8.5); Neutrophils Absolute Auto 11.2 K/mm3 (1.3-6.7); Neutrophils Percent Auto 76.8 % (45.5-73.1); Platelet Count Result 194 k/mm3 (150-375); Red Blood Count 2.91 M/mm3 (4.2-5.4); Red Cell Distribution Width 14.2 % (11.5-14.5); White Blood Count 14.6 K/mm3 (4.5-10.0)
[2023-10-31] MEDS: SIMETHICONE 80 MG TAB.CHEW PO ×3 (07:54→16:43)
[2023-10-31] MEDS: POLYSACCHARIDE IRON COMPLEX 150 MG CAPSULE PO ×2 (07:54→16:43)
[2023-10-31] MEDS: DOCUSATE SODIUM 100 MG CAPSULE PO ×2 (07:54→16:43)
[2023-10-31] MEDS: MULTIVIT/MIN/PREN/FOL AC/IRON TABLET 1 TAB PO (07:54)
[2023-10-31 09:10] VITALS: BP 107/71; PULSE 83; RESP 18; TEMP 36.1; O2SAT 100
--- NOTE | 2023-10-31 10:30 | PC.NURSE ---
Patient left the unit via wheelchair with on a 4 to 6 hour pass to visit baby over at [facility].
--- NOTE | 2023-10-31 11:49 | WPDANLDPN2 ---
Anes-Prog Note L&D Date/Time: 10/31/23 11:49 Neuro status: Neuro function grossly intact. Cardiovascular status: normal Respiratory status: normal Airway patency: baseline Mental status: baseline Post-Op hydration status: normal Vital Signs: Last Vital Signs Temp 36.1 C L 10/31/23 09:10 Pulse 83 10/31/23 09:10 Resp 18 10/31/23 09:10 BP 107/71 10/31/23 09:10 Pulse Ox 100 10/31/23 09:10 O2 Del Method Room Air 10/29/23 06:26 Pain score (VAS): 0 I/O: Intake & Output 10/30/23 10/31/23 10/31/23 23:59 07:59 15:59 Intake Total 100 Output Total 400 Balance -300 Post-procedural complaints: none Patient feedback: Patient satisfied with anesthetic care.
--- NOTE | 2023-10-31 16:00 | PC.NURSE ---
Patient returned to the unit from her pass to see baby
[2023-10-31] MEDS: LIDOCAINE 5% PATCH 1 PATCH TRANSDERM (16:43)
--- NOTE | 2023-10-31 17:15 | PM.OBPNVD ---
OB - PN: Subj Subjective Date/time seen: 10/31/23 17:15 Interval history: She has adequate pain control, no leg pain, decrease lochia. Patient comments: tolerating diet and flatus present baby status: other OB - PN: Obj Data Labs 10/31/23 04:37 Labs: Laboratory Results - last 24 hr 10/31/23 04:37 WBC 14.6 H RBC 2.91 L Hgb 9.0 L D Hct 28.0 L MCV 96.2 MCH 30.9 MCHC 32.1 RDW 14.2 Plt Count 194 MPV 10.8 H Immature Gran % (Auto) 0.8 H Neut % (Auto) 76.8 H Lymph % (Auto) 14.1 L [place] % (Auto) 7.1 Eos % (Auto) 0.9 Baso % (Auto) 0.3 Lymph # (Auto) 2.05 [place] # (Auto) 1.0 H Eos # (Auto) 0.1 Baso # (Auto) 0.1 Abs Immat Gran (auto) 0.11 H Absolute Neuts (auto) 11.2 H Absolute Nucleated RBC 0.000 Nucleated RBC % 0.0 OB - PN A/P Assessment and Plan (1) Delivery by section: Status: Acute Assessment and Plan: Doing well. Asymptomatic anemia. Continue routine post op care. Allow pass to visit baby. Time Spent With Patient Time: Total time spent is greater than 50% in coordination of care (as documented) at patient's floor/unit and/or counseling patient: Exam Const: General: comfortable and no acute distress Resp: Effort & Inspection: normal respiratory effort GI: Other: incision intact no drainage or erythema Psych: Mental Status: mental status grossly normal Affect: normal affect
[2023-10-31] MEDS: HYDROcodone/acetaminophen (*CRX) 10-325 MG TABLET 1 TAB PO (19:34)
[2023-10-31] MEDS: PSEUDOEPHEDRINE HCL 30 MG TABLET 60 MG PO (19:35)
[2023-10-31 20:09] VITALS: BP 121/77; PULSE 90; RESP 15; TEMP 36.7; O2SAT 100
[2023-11-01] MEDS: IBUPROFEN 600 MG TABLET PO (05:03)
[2023-11-01] MEDS: ACETAMINOPHEN 325 MG TABLET 650 MG PO (05:04)
[2023-11-01 07:55] VITALS: BP 96/53; PULSE 82; RESP 18; TEMP 36.6; O2SAT 100
[2023-11-01] MEDS: MULTIVIT/MIN/PREN/FOL AC/IRON TABLET 1 TAB PO (07:58)
[2023-11-01] MEDS: SIMETHICONE 80 MG TAB.CHEW PO (07:58)
[2023-11-01] MEDS: HYDROcodone/acetaminophen (*CRX) 10-325 MG TABLET 1 TAB PO (07:58)
[2023-11-01] MEDS: DOCUSATE SODIUM 100 MG CAPSULE PO (07:58)
[2023-11-01] MEDS: PSEUDOEPHEDRINE HCL 30 MG TABLET 60 MG PO (07:59)
[2023-11-01] MEDS: POLYSACCHARIDE IRON COMPLEX 150 MG CAPSULE PO (07:59)
--- NOTE | 2023-11-01 09:00 | PC.NURSE ---
Patient received instruction on viewing the discharge video Mother & Baby Care, The First Two Weeks . Patient was given the opportunity and encouraged to ask questions. Patient verbalized understanding of information shared and has been given the mother/baby guide for home reference.
[2023-11-04 10:59] VITALS: BP 122/82; PULSE 76; RESP 18; TEMP 36.9; O2SAT 100
--- NOTE | 2023-11-22 13:30 | WPDHPUPDATE1 ---
History and Physical Update Update Date/Time: 10/29/23 13:30 History and Physical has been reviewed, including an updated exam of the patient. There are NO changes in the patient's condition. Risks, benefits, and alternatives have been discussed and questions answered. Patient agrees to proceed with procedure.
--- NOTE | 2023-11-22 13:35 | PM.OBDSVD ---
DS: Admitting Diagnosis Discharge Date 11/01/23 Admitting Diagnosis Induction of labor DS: Discharge Diagnosis Discharge Diagnosis (1) Delivery by section: Status: Acute (2) Failure to progress in labor: Code(s): O62.2 - Other uterine inertia Status: Acute OB - DS: Summary Hospital Course Hospital Course: She was admitted for medical induction of labor. Labor course significant for failure to progress. She had an uncomplicated delivery. She did well . She was continued on antibiotics for chorioamnionitis that was diagnosed in labor. Antibiotics were continued until afebrile for 24 hours. She was tolerating regular diet and ambulating well and had adequate pain control on day 1. She was discharged to home on day two. Discharge precautions discussed. OB Procedures : NST and Ultrasound OB Procedures Intrapartum: OB Procedures: : Antibiotics Peripartum Data Infant Delivery Method: Section Procedures: Procedures Operation Date: 10/30/23 00:00 Actual Procedure Side Surgeon p Section Not Applicable Ronan Fallon MD complications: none Status at Discharge Functional status at discharge: independent ambulation Time Spent with Patient Time attestation: Total time spent providing and/or coordinating discharge services: Exam Const: General: cooperative Orientation/consciousness: oriented to person, oriented to place and oriented to time HENMT: Face/Nose/Sinus: Normal external nose present Eyes: General: appearance normal, both eyes and all related structures Resp: Effort & Inspection: normal respiratory effort GI: Inspection: normal to inspection Other: incision intact no drainage Skin: General skin exam: normal color Neuro: General: oriented to person, oriented to place and oriented to time Extrem: General: normal to inspection and no calf tenderness Psych: Appearance: grossly normal Mental Status: mental status grossly normal DS: Data Data Completed and Pending Completed studies during hospitalization: Pending at discharge 10/30/23 00:31 Surgical [PTH] Routine Discharge Plan Discharge Attending physician on discharge: Ronan Fallon Consulting providers: Yoel Oshea Jr.; Libby Guerrero Discharging Clinician: Ronan Fallon Anticipated Discharge Date/Time: 11/01/23 10:28 Patient Disposition: Home, Self-Care Activity: may shower, no driving and pelvic rest Diet: regular Discharge Instructions: Education: Mom and Baby Guide and Preeclampsia Handout Given to: Mother Follow-Up: Call your delivering provider's office for an appointment to be seen in: 2 Week Mom and baby should come to the [facility] for the follow-up appointment. Appointment Date/Time: November 04, 2023 at 11:00 am What to expect at your follow-up visit: Physical Assessment Call [phone] if you are unable to keep your appointment time. BREAST CARE: * Wear a snug supportive bra. * For engorgement discomfort: Breast Feeding: * Apply warm moist washcloths * Express milk as needed to relieve engorgement * Wear loose clothing * For sore nipples: * Identify correct latch-on * Apply warm moist washcloths before and after nursing * Air dry nipples after nursing * May apply Lansinoh cream to nipples ABDOMINAL INCISION: (if applicable) * Allow incision to air dry * Do NOT use lotions for powders on your incision * When showering, allow soap and water to run over the incision, but do not wash incision EPISIOTOMY/PERINEAL CARE: * Until bleeding stops, use your thanh bottle after urinating * Change your pad frequently throughout the day * No tub baths until seen by your physician - You may shower ACTIVITY: * Rest as much as possible. * Do not exercise or lift
== END 2023-11-01 11:26 | disposition home or self-care (01) | DRG 786 ==
LOC: ANHLDR 16:58 → ANHOB2 10-30 03:47
PROVIDERS: Admitting Provider Obstetrics & Gynecology; PCP Physician Assistant; Visit Provider Obstetrics & Gynecology
PROC: 10D00Z1 Extraction of Products of Conception, Low, Open Approach (ICD-10-PCS; CPT 59514; principal; 2023-10-30)
DX: O36.63X0 Maternal care for excessive fetal growth, third trimester, not applicable or unspecified (principal); O41.1230 Chorioamnionitis, third trimester, not applicable or unspecified; Z37.0 Single live birth; Z3A.39 39 weeks gestation of pregnancy; O77.0 Labor and delivery complicated by meconium in amniotic fluid; O62.1 Secondary uterine inertia
CPT/HCPCS: 36415; 85025; 86592; 86850; 86880; 86900; 86901; 86902; 88307; A9270; J0290; J0690; J1200; J1580; J1885; J2001; J2274; J2405; J2590; J2795; J3010; J7120

== ENCOUNTER 2025-06-15 14:09 | Outpatient (CLI) | payer OTHER, SELFPAY ==
[2025-06-15 14:34] LABS: Hematocrit 33.6 % (37.0-47.0); Hemoglobin 11.1 g/dL (12.0-15.0); Mean Corpuscular HGB Conc 33.0 g/dl (32-36); Mean Corpuscular Hemoglobin 29.2 pg (26-34); Mean Corpuscular Volume 88.4 fl (80-100); Platelet Count Result 320 k/mm3 (150-375); Red Blood Count 3.80 M/mm3 (4.2-5.4); White Blood Count 10.5 K/mm3 (4.5-10.0)
[2025-06-15 14:57] LABS: Add Urine Microscopic? YES; Appearance Urine Cloudy (Clear); Glucose Urine UA Negative (Negative); Leukocyte Esterase Ur Trace LEU/UL (Negative); Need Manual Microscopic Reviewed; Nitrate Urine Negative (Negative); Non Pathogenic Casts 0-2; Specific Grav Ur 1.027 (1.001-1.035)
[2025-06-15 15:17] LABS: Thyroid Stimulating Hormone 0.549 uIU/mL (0.465-4.680)
[2025-06-15 15:29] LABS: HIV 1/2 Ab P24 Ag Result Negative (Negative)
[2025-06-15 16:00] LABS: Syphilis IgG/IgM Antibody Non-Reactive (Nonreactive)
--- OUTSIDE RECORDS SUMMARY | 2025-06-15 16:33 | XMS_ITS | Clinical Summary ---
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
--- OUTSIDE RECORDS SUMMARY | 2025-06-15 16:33 | XMS_ITS | Clinical Summary ---
Author Organization [facility] Address [address] [place] [address] Care Team Providers Care Marine Equipment Sales Engineer Name Role Phone Byron Jack Primary Care Provider [phone] Source Comments [facility],non-owned Affiliates and Associated Physician Practices is amultiple site organization consisting of ambulatory clinics and hospital sitesin [place], [place], [place] and [place]. This disclosure is being madepursuant to the Care Everywhere program and may not contain all information available regarding this patient. 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 Gender Identity Not on file Sexual Orientation Not on file Plan of Treatment Upcoming Encounters Date Type Department Care Team (Late st Contact Info) Description 07/14/2025 1:45 PM LOCATE TECHNICIAN Appointment [facility] [address] [place] [phone] 07/14/2025 2:30 PM LOCATE TECHNICIAN Appointment [facility] [address] [place] [phone] Health Maintenance Due Date Last Done Comments HIV SCREENING 2009 HEPATITIS C SCREENING 07/25/2012 DTAP/TDAP/TD VACCINES (1 - Tdap) 2013 HEPATITIS B VACCINE (1 of 3 - 19+ 3-dose series) 2013 PAP SMEAR 2015 HPV VACCINE (1 - 3-dose SCDM series) 2021 DEPRESSION SCREENING 07/01/2024 COVID-19 VACCINE (2024-2 6 season) 2025 INFLUENZA VACCINE (#1) 2025 ZOSTER VACCINE (1 of 2) 2044 HIB VACCINE Aged Out No longer eligi ble based on patient's age to complete this topic MENINGOCOCCAL (Group B) VACC INE SHARED DECISION-MAKING Aged Out No longer eligibl e based on patient's age to complete this topic MENINGOCOCCAL GROUPS A/C/Y/W VACCINE Aged Out No longer eligible b ased on patient's age to complete this topic PNEUMOCOCCAL VACCINE Aged Out No long er eligible based on patient's age to complete this topic Insurance * Guarantor: TIA RAMON Account Type Relation to Patient Date of Phone Billing Address Personal/Family [id number] [place] [address] SELF PAY NO INSURANCE Member Subscriber Plan / Payer (Ef fective for All Dates) Name:Tia Ramon Member ID:Not on file Relation to Subscriber:Not on file Name:TIA RAMON Subscriber ID:Not on file Address: [address] [place] [address] Payer ID:Not on file Group ID:Not on file Type:Self Pay Address: [facility] * Guarantor: TIA RAMON Account Type Relation to Patient Date of Phone Billing Address Personal/Family [address] [place] [address] SELF PAY NO INSURANCE Member Subscriber Plan / Payer (Ef fective for All Dates) Name:Tia Ramon Member ID:Not on file Relation to Subscriber:Not on file Name:TIA RAMON Subscriber ID:Not on file Address: [place] [address] Payer ID:Not on file Group ID:Not on file Type:Self Pay Address: [facility] * Guarantor: TIA RAMON Account Type Relation to Patient Date of Phone Billing Address Personal/Family [place] [address] SELF PAY NO INSURANCE Member Subscriber Plan / Payer (Ef fective for All Dates) Name:Tia Ramon Member ID:Not on file Relation to Subscriber:Not on file Name:TIA RAMON Subscriber ID:Not on file Address: [place] [address] Payer ID:Not on file Group ID:Not on file Type:Self Pay Address: [facility] Care Teams Marine Equipment Sales Engineer Relationship Specialty Start Date End Date Byron Jack PA [address] [place] [address] PCP - General 07/23/22
[2025-06-16 06:07] LABS: Varicella-Zoster Ab, IgG Reactive (Non Reactive)
== END 2025-06-15 14:10 | disposition home or self-care (01) ==
PROVIDERS: PCP Physician Assistant; Visit Provider Obstetrics & Gynecology
DX: Z34.90 Encounter for supervision of normal pregnancy, unspecified, unspecified trimester (principal)
CPT/HCPCS: 36415; 81001; 83020; 84443; 85027; 85660; 86593; 86703; 86762; 86787; 86803; 86850; 86900; 86901; 87086; 87340; G0432